=== PATIENT | male | born 1990 | race Caucasian/White ===

== ENCOUNTER 2017-10-18 11:42 | Emergency (ER) | payer MEDICARE, MEDICAID ==
[~2017-10-18] VITALS: Ht 172.7 cm; Wt 76.0 kg
[~2017-10-18 11:42] MED LIST: FENT-91 TD; HYDR2TAB28 PO; PER10325T PO
[2017-10-18 12:17] LABS: CLARITY,URINE CLOUDY (Clear); COLOR,URINE AMBER (Yellow); GLUCOSE, URINE NEGATIVE (Neg); KETONES,URINE TRACE mg/dl (Neg); LEUKOCYTE ESTERASE ,URINE NEGATIVE (Neg); NITRITES, URINE NEGATIVE (Neg); OCCULT BLOOD,URINE LARGE (Neg); PROTEIN,URINE 100 mg/dl (Neg); UROBILINOGEN,URINE 0.2 E.U/dL (0.2-1.0)
[2017-10-18 12:18] LABS: UA COLLECTION TYPE CLN CATCH MIDSTREAM
[2017-10-18 12:28] LABS: RBC,URINE TNTC /HPF (0-2)
[2017-10-18 12:29] LABS: BACTERIA,URINE 1+ /HPF (Neg); MUCUS STRANDS MODERATE /LPF (Neg); SPERM FEW /HPF (NEGATIVE); SQUAMOUS EPITHELIAL CELL,UR FEW /LPF (FEW); WBC,URINE 0-4 /HPF (0-4)
[2017-10-18] MEDS ORDERED: normal saline 1000ml 1,000 ML IV ONE (14:00)
[2017-10-18] MEDS ORDERED: ketorolac tromethamine 15mg/ml inj. IV ONE (14:00)
[2017-10-18] MEDS ORDERED: FLO0.4C PO (14:55)
[2017-10-18] MEDS ORDERED: HYDR-3965 PO (14:55)
[2017-10-18] MEDS ORDERED: IBUP-1985 PO (14:55)
[2017-10-18 15:08] VITALS: BP 112/72
== END 2017-10-18 15:10 | disposition home or self-care (01) ==
LOC: ER 11:43
DX: N20.0 Calculus of kidney (principal); F12.10 Cannabis abuse, uncomplicated; G89.29 Other chronic pain; Z79.899 Other long term (current) drug therapy; Z56.0 Unemployment, unspecified
CPT/HCPCS: 74176; 81001; 96361; 96374; 99285; J1885; J7030

== ENCOUNTER 2018-10-11 01:20 | Emergency (ER) | payer MEDICARE, MEDICAID ==
[~2018-10-11] VITALS: Ht 172.7 cm; Wt 66.8 kg
[~2018-10-11 01:20] MED LIST changes: -FENT-91 TD; +FENT1PAT10 TD; +IBUP-1985 PO
[2018-10-11] MEDS ORDERED: DOXY100C43 PO (01:42)
[2018-10-11 01:55] VITALS: BP 126/84
== END 2018-10-11 01:59 | disposition home or self-care (01) ==
LOC: ER 01:21
DX: R21 Rash and other nonspecific skin eruption (principal); M79.601 Pain in right arm; G89.29 Other chronic pain; F32.9 Major depressive disorder, single episode, unspecified; Z56.0 Unemployment, unspecified; F17.210 Nicotine dependence, cigarettes, uncomplicated; Z79.899 Other long term (current) drug therapy
CPT/HCPCS: 99283

== ENCOUNTER 2024-02-18 20:55 | Emergency (ER) | payer MEDICARE, MEDICAID ==
[~2024-02-18] VITALS: Ht 172.7 cm; Wt 78.2 kg
[2024-02-18 21:04] VITALS: BP 117/81; PULSE 107; RESP 18; TEMP 98.9; O2SAT 98
[2024-02-18] MEDS ORDERED: CLIN300C54 PO (21:26)
[2024-02-18] MEDS: TETanus/Pertussis (Acell)/Diphther VAC/PF (Tdap-Adult) 0.5ml syringe IMVAC ONE (21:29)
== END 2024-02-18 21:39 | disposition home or self-care (01) ==
LOC: ER 20:55
DX: S60.451A Superficial foreign body of left index finger, initial encounter (principal); G89.29 Other chronic pain; M54.9 Dorsalgia, unspecified; F32.A Depression, unspecified; F12.90 Cannabis use, unspecified, uncomplicated; Z79.899 Other long term (current) drug therapy; Z79.1 Long term (current) use of non-steroidal anti-inflammatories (NSAID); X58.XXXA Exposure to other specified factors, initial encounter; Y93.89 Activity, other specified; Y92.89 Other specified places as the place of occurrence of the external cause; Y99.8 Other external cause status
CPT/HCPCS: 90715; 99283; G0008; 90471